=== PATIENT | female | born 1985 | race Caucasian/White ===

== ENCOUNTER 2019-07-03 19:25 | Emergency (ER) | payer OTHER ==
[~2019-07-03] VITALS: Ht 167.6 cm; Wt 81.7 kg
[~2019-07-03 19:25] MED LIST: CIPROFLOXIN HC2.5 M1 OPHTHALMIC; IBUPROFEN 800800 M1 PO
[2019-07-03] MEDS ORDERED: ZANAFLEX4 MG PO (21:07)
[2019-07-03] MEDS ORDERED: NABUMETONE 750750 M1 PO (21:07)
[2019-07-03 21:46] VITALS: BP 93/45
== END 2019-07-03 21:47 | disposition home or self-care (01) ==
LOC: M.ERS 19:25
DX: S39.012A Strain of muscle, fascia and tendon of lower back, initial encounter (principal); I70.8 Atherosclerosis of other arteries; F17.210 Nicotine dependence, cigarettes, uncomplicated; Z98.51 Tubal ligation status; V89.2XXA Person injured in unspecified motor-vehicle accident, traffic, initial encounter; Y93.89 Activity, other specified; Y92.89 Other specified places as the place of occurrence of the external cause; Y99.8 Other external cause status